=== PATIENT | female | born 1990 | race Two or more races ===

== ENCOUNTER 2025-01-20 19:39 | Emergency (ER) | payer MEDICAID, SELFPAY ==
[2025-01-20 19:40] VITALS: BMI 42.0
[2025-01-20 19:54] VITALS: BP 110/72; PULSE 77; RESP 18; TEMP 36.9; O2SAT 99
--- NOTE | 2025-01-20 19:54 | EDNOTE_ITS ---
ED Dental RME/HPI General Chief complaint: Dental/Oral/Throat Stated complaint: RIGHT LOWER TOOTH PAIN Time Seen by Provider: 01/20/25 19:50 Source: patient, RN notes reviewed and old records reviewed Arrival date/time: 01/20/25 19:39 Mode of arrival: ambulatory Limitations: no limitations RME / HPI RME / HPI Narrative: 34yof presents to ED for 2-day history of dental pain. Patient reports toothache to right lower molar after recent dental fracture. No fever, facial swelling, shortness of breath, nausea/vomiting or headache reported. No medications or treatments since onset. Patient plans to call her dentist tomorrow morning. Related Data Previous Rx's ?Medication ?Instructions ?Recorded acetaminophen 500 mg tablet 1,000 mg (2 x 500 mg) PO Q 6H PRN 01/20/25 (Tylenol Extra Strength) pain #30 tabs amoxicillin 875 mg-potassium 1 tab PO BID #20 tabs clavulanate 125 mg tablet Allergies Allergy/AdvReac Type Severity Reaction Status Date / Time ibuprofen Allergy Unknown Swelling Verified 01/20/25 19:40 of the Eye Review of Systems Review of Systems Systems Reviewed: All systems reviewed, normal except as documented Constitutional Constitutional: Denies chills and Denies fever(s) ENT Ears, Nose, Mouth, and Throat: Reports dental pain Cardiovascular Cardiovascular: Denies dyspnea Respiratory Respiratory: Denies dyspnea Gastrointestinal Gastrointestinal: Denies nausea and Denies vomiting Past Medical History Past Medical History GASTROINTESTINAL: Positive Obesity Surgical History OTHER SURGICAL HX: neck cystectomy, LEEP Social History SMOKING STATUS: Never smoker SUBSTANCE USE: marijuana ALCOHOL: Never ED Exam General Limitations: Present no limitations General appearance: Present alert, in no apparent distress and obese Head Head exam: Present atraumatic and normocephalic Eye Eye exam: Present normal appearance, PERRL and EOMI ENT ENT exam: Present normal oropharynx, mucous membranes moist and other (Generalized dental caries. Fracture to right lower third molar. No gingival erythema/swelling. No obvious drainable abscess. No trismus or facial swelling) Neck Neck exam: Present normal inspection and full ROM; Absent lymphadenopathy Chest Chest inspection: Present normal inspection and symmetric chest wall rise Respiratory Respiratory exam: Present normal lung sounds bilaterally; Absent respiratory distress or stridor Cardiovascular Cardiovascular exam: Present regular rate and normal rhythm Extremities Exam Extremities exam: Present normal inspection and full ROM Neurological Exam Neurological exam: Present alert and oriented X3 Psychiatric Psychiatric exam: Present normal affect and normal mood Skin Skin exam: Present warm, dry, intact and normal color Course Quality Measures none Orders Category Date Time Status HYDROcodone*/APAP 7.5/325 [[place] 7.5/325] Med 01/20/25 19:57 Discontinued 1 tab PO X1 ONE Vital Signs Vital signs: Vital Signs Temperature 98.5 F 01/20/25 19:54 Pulse Rate 77 01/20/25 19:54 Respiratory Rate 18 01/20/25 19:54 Blood Pressure 110/72 01/20/25 19:54 Pulse Oximetry (%) 99 01/20/25 19:54 Oxygen Delivery Method Room Air 01/20/25 19:54 Dental / Oral MDM Narrative MDM Narrative:: 34yof presents to ED for 2-day history of dental pain. Patient reports tootha betty to right lower molar after recent dental fracture. No fever, facial swelling, shortness of breath, nausea/vomiting or headache reported. No medications or treatments since onset. Patient plans to call her dentist tomorrow morning. Encourage close dentistry follow-up. Stable for discharge, RTED precautions given. Patient data External records reviewed:: [facility] previous records (Admit 11/13/2023 labor and delivery) Clinical information provided by:: patient Social determinants that could affect healthcare access:: none Patient has the following chronic illnesses:: Obesity How is presenting disease/condition affected by chronic disease/condition?: uneffected by Evaluation data The following diagnostics were reviewed and interpreted by me:: other (specify) Lab and/or radiology exams considered but not ordered:: None Interpretation Summary: na Medications / Prescriptions Medications or Prescriptions considered but not ordered:: None Medication administrations:: Medication Administration History Discontinued Medications Hydrocodone Bitart/Acetaminophen (Hydrocodone/Apap 7.5/325 Tablet) 1 tab PO X1 ONE Stop: 01/20/25 19:58 Last Admin: 01/20/25 20:11 Dose: 1 tab Documented By: KF Above medication administered in ED Consultations Consultation(s) initiated? (list below): No Diagnosis Dental Differential Diagnosis: gingival abscess, dental caries, toothache, dental abscess and fracture of tooth Most likely diagnosis given after review of the tests above:: Dental pain Admission Indicated Admission indicated?: not indicated Admission Request Was there a request for admission?: No Disposition Plan Disposition Plan: Discharge Discharge Attestation Discharge Attestation: The patient and all family members were given an opportunity to ask questions and understood the discharge instructions. Discharge instructions specifically effects, indications for sooner follow up or return to the emergency department, and the expected course of current diagnosis. Patient condition: Stable Discharge Plan Plan Patient Disposition: HOME (Self Care) Patient condition on transfer: Stable Prescriptions/Referrals Prescriptions/Med Rec: New amoxicillin-pot clavulanate 875-125 mg tablet 1 tab PO BID Qty: 20 0RF acetaminophen [Tylenol Extra Strength] 500 mg tablet 1,000 mg PO Q6H PRN (Reason: pain) Qty: 30 0RF Problem List Clinical Impression: Toothache, Dental caries, Fracture of tooth Patient/Caregiver Discharge Instructions Education Materials: ED Dental Pain Additional Instructions: Please follow-up with your dentist as soon as possible. Print Language: Slovak Stand Alone Forms: Gloria Award Info., Patient Portal Info Letter PA/JONATHAN Supervising Physician DANII/JONATHAN Supervising Physician: Pan
[2025-01-20] MEDS: HYDROcodone/APAP 7.5/325 TABLET 1 TAB PO (20:11)
== END 2025-01-20 20:22 | disposition home or self-care (01) ==
PROVIDERS: Emergency Provider Emergency Medicine
DX: K02.9 Dental caries, unspecified (principal); S02.5XXA Fracture of tooth (traumatic), initial encounter for closed fracture; X58.XXXA Exposure to other specified factors, initial encounter
CPT/HCPCS: 99283; A9270

== ENCOUNTER 2025-05-23 18:16 | Emergency (ER) | payer MEDICAID, SELFPAY ==
[2025-05-23 18:44] VITALS: BP 103/62; PULSE 86; RESP 18; TEMP 36.8; O2SAT 99
[2025-05-23] MEDS: HYDROcodone/APAP 5/325 TABLET 1 TAB PO (19:03)
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
== END 2025-05-23 19:15 | disposition home or self-care (01) ==
LOC: SERX 19:14
PROVIDERS: Emergency Provider Emergency Medicine
DX: S13.4XXA Sprain of ligaments of cervical spine, initial encounter (principal); S80.01XA Contusion of right knee, initial encounter; V89.2XXA Person injured in unspecified motor-vehicle accident, traffic, initial encounter
CPT/HCPCS: 99282; A9270